=== PATIENT | female | born 1980 | race African-American/Black ===

== ENCOUNTER 2023-05-04 12:09 | Inpatient (IN) | payer OTHER ==
[~2023-05-04] VITALS: Ht 175.3 cm; Wt 87.6 kg
[2023-05-04] MEDS ORDERED: ASPirin 325 MG TAB PO ONE (12:15)
[2023-05-04] MEDS ORDERED: IBU600T PO (12:47)
[2023-05-04 12:53] LABS: Basophils # (auto) 0.1 10 ^3/uL (0-0.2); Eosinophils # (auto) 0.1 10 ^3/uL (0-0.8); Eosinophils % (auto) 0.9 % (0.0-7.0); Nucleated Red Blood Cells % 0.1 %
[2023-05-04 12:54] LABS: Hematocrit 24.9 % (36.0-46.0); Lymphocytes # (auto) 2.7 10 ^3/uL (0.4-5.4); Lymphocytes % (auto) 39.6 % (10.0-50.0); Mean Corpuscular Hemoglobin 18.3 pg (28.0-32.0); Mean Corpuscular Hgb Conc. 27.7 g/dL (32.0-36.0); Mean Corpuscular Volume 66.1 fL (80.0-100.0); Monocytes # (auto) 0.6 10 ^3/uL (0-1.3); Neutrophils # (auto) 3.3 10 ^3/uL (1.6-8.6); Neutrophils % (auto) 49.5 % (37.0-80.0); Red Blood Cells 3.77 10^6/uL (4.0-5.20); White Blood Cell 6.7 10^3/uL (4.4-10.8)
[2023-05-04 12:57] LABS: Red Cell Distribution Width 23.4 % (11.8-14.3)
[2023-05-04 13:00] LABS: Hemoglobin 6.9 g/dL (12.2-16.2)
[2023-05-04 13:10] LABS: INR 0.97 (0.9-1.15); Partial Thromboplastin Time 24.8 SEC (24.5-34.5)
[2023-05-04 13:59] LABS: Albumin 3.9 g/dL (3.4-5.0); Potassium 4.2 mmol/L (3.5-5.1)
[2023-05-04 14:05] LABS: BUN/Creatinine Ratio 15.2 (10.0-20.0); Bilirubin, Total 0.4 mg/dL (0.2-1.0); Total Protein 8.2 g/dL (6.4-8.2)
[2023-05-04] MEDS ORDERED: ONDANSETRON HCL 4 MG/2 ML VIAL IV PRN (14:30)
[2023-05-04] MEDS ORDERED: DOCUSATE SOD 100 MG CAP PO PRN (14:30)
[2023-05-04] MEDS ORDERED: MORPHINE SULFATE INJ 2 MG/ml SYRG IV PRN (14:30)
[2023-05-04] MEDS ORDERED: ACETAMINOPHEN 325 MG TAB PO PRN (14:30)
[2023-05-04] MEDS ORDERED: HYDROcodone-ACET 5/325MG TAB PO PRN (14:30)
[2023-05-04] MEDS ORDERED: IOHEXOL 350 MG/ML 100ML IJ ONE (14:35)
[2023-05-04 14:39] LABS: % Iron Saturation 2.2 % (15-50)
[2023-05-04] MEDS: FERROUS SULFATE 325mg EC TAB PO SCH (14:45)
[2023-05-04] MEDS: NITROGLYCERIN 0.4 MG SL TAB SL PRN ×2 (20:54→21:03)
[2023-05-04] MEDS: SODIUM CHLOR 0.9% PF (SALINE LOCK) 10ML VIAL/SYR IV SCH (22:36)
[2023-05-05 00:45] LABS: Urine Bacteria NONE SEEN /hpf (None Seen); Urine Blood 3+ /uL (Negative); Urine Mucus FEW (None Seen); Urine WBC 1 /hpf (0 - 5)
[2023-05-05 00:46] LABS: Urine Specific Gravity > 1.050 (1.001-1.035)
[2023-05-05] MEDS: SODIUM CHLOR 0.9% PF (SALINE LOCK) 10ML VIAL/SYR IV SCH ×3 (05:10→22:05)
[2023-05-05 05:22] VITALS: BP 119/69
[2023-05-05 05:45] VITALS: BP 104/65
[2023-05-05 07:40] VITALS: BP 112/71
[2023-05-05 07:55] VITALS: BP 115/75
[2023-05-05] MEDS: FERROUS SULFATE 325mg EC TAB PO SCH (10:17)
[2023-05-05 11:29] LABS: Basophils # (auto) 0.1 10 ^3/uL (0-0.2); Eosinophils # (auto) 0.1 10 ^3/uL (0-0.8); Hematocrit 24.4 % (36.0-46.0); Lymphocytes # (auto) 2.6 10 ^3/uL (0.4-5.4); Nucleated Red Blood Cells % 0.4 %; White Blood Cell 6.6 10^3/uL (4.4-10.8)
[2023-05-05 11:31] LABS: Basophils % (auto) 1.2 % (0.0-2.0); Eosinophils % (auto) 1.7 % (0.0-7.0); Lymphocytes % (auto) 39.5 % (10.0-50.0); Mean Corpuscular Hemoglobin 19.9 pg (28.0-32.0); Mean Corpuscular Hgb Conc. 28.9 g/dL (32.0-36.0); Mean Corpuscular Volume 69.1 fL (80.0-100.0); Monocytes # (auto) 0.7 10 ^3/uL (0-1.3); Monocytes % (auto) 10.2 % (0.0-12.0); Neutrophils # (auto) 3.1 10 ^3/uL (1.6-8.6); Neutrophils % (auto) 47.4 % (37.0-80.0); Red Blood Cells 3.53 10^6/uL (4.0-5.20)
[2023-05-05 11:34] LABS: Albumin 3.2 g/dL (3.4-5.0); Potassium 3.9 mmol/L (3.5-5.1)
[2023-05-05 11:35] LABS: Red Cell Distribution Width 25.6 % (11.8-14.3)
[2023-05-05 11:40] LABS: BUN/Creatinine Ratio 15.5 (10.0-20.0); Bilirubin, Total 0.2 mg/dL (0.2-1.0); Calcium 8.3 mg/dL (8.5-10.1); Magnesium 2.4 mg/dL (1.6-2.6); Total Protein 7.1 g/dL (6.4-8.2)
[2023-05-06] VITALS (9 sets, daily range): BP systolic 105–141; BP diastolic 60–82
[2023-05-06] MEDS ORDERED: HYDR25TA4 PO (04:39)
[2023-05-06] MEDS: SODIUM CHLOR 0.9% PF (SALINE LOCK) 10ML VIAL/SYR IV SCH ×3 (05:41→22:36)
[2023-05-06 06:39] LABS: Albumin 3.1 g/dL (3.4-5.0); Calcium 8.4 mg/dL (8.5-10.1); Magnesium 2.2 mg/dL (1.6-2.6); Potassium 3.8 mmol/L (3.5-5.1)
[2023-05-06 06:42] LABS: BUN/Creatinine Ratio 15.5 (10.0-20.0); Bilirubin, Total 0.2 mg/dL (0.2-1.0); Total Protein 7.1 g/dL (6.4-8.2)
[2023-05-06 08:14] LABS: Hematocrit 25.5 % (36.0-46.0); Hemoglobin 7.1 g/dL (12.2-16.2); Mean Corpuscular Hemoglobin 19.5 pg (28.0-32.0); Mean Corpuscular Hgb Conc. 27.9 g/dL (32.0-36.0); Mean Corpuscular Volume 69.8 fL (80.0-100.0); Red Blood Cells 3.66 10^6/uL (4.0-5.20); White Blood Cell 7.6 10^3/uL (4.4-10.8)
[2023-05-06 08:19] LABS: Basophils % (manual) 0 (0.0-2.0); Blast Cells 0; Promyelocytes % 0; Reactive Lymphocytes 0
[2023-05-06] MEDS: PANTOPRAZOLE 40 MG/10 ML VIAL INJ IV SCH (08:26)
[2023-05-06] MEDS: FERROUS SULFATE 325mg EC TAB PO SCH (08:26)
[2023-05-06 09:30] LABS: Band Neutrophils % (manual) 4; Eosinophils % (manual) 1 (0-7); Lymphocytes % (manual) 31 (10.0-50.0); Metamyelocytes % 4; Monocytes % (manual) 4 (0-12); Myelocytes % 4
[2023-05-07 00:10] VITALS: BP 105/60
[2023-05-07] MEDS: SODIUM CHLOR 0.9% PF (SALINE LOCK) 10ML VIAL/SYR IV SCH ×2 (06:22→14:00)
[2023-05-07] MEDS: PANTOPRAZOLE 40 MG/10 ML VIAL INJ IV SCH (08:33)
[2023-05-07] MEDS: FERROUS SULFATE 325mg EC TAB PO SCH (08:33)
[2023-05-07 08:46] LABS: Albumin 3.3 g/dL (3.4-5.0); Calcium 8.6 mg/dL (8.5-10.1); Potassium 3.8 mmol/L (3.5-5.1)
[2023-05-07 08:49] LABS: BUN/Creatinine Ratio 6.9 (10.0-20.0); Bilirubin, Total 0.3 mg/dL (0.2-1.0); Total Protein 7.4 g/dL (6.4-8.2)
[2023-05-07 09:00] VITALS: BP 113/77
[2023-05-07 09:05] LABS: Basophils # (auto) 0 10 ^3/uL (0-0.2); Eosinophils # (auto) 0.2 10 ^3/uL (0-0.8); Hemoglobin 8.5 g/dL (12.2-16.2)
[2023-05-07 09:07] LABS: Basophils % (auto) 0.4 % (0.0-2.0); Eosinophils % (auto) 2.3 % (0.0-7.0); Hematocrit 28.6 % (36.0-46.0); Lymphocytes # (auto) 3.1 10 ^3/uL (0.4-5.4); Lymphocytes % (auto) 42.5 % (10.0-50.0); Mean Corpuscular Hemoglobin 20.9 pg (28.0-32.0); Mean Corpuscular Hgb Conc. 29.6 g/dL (32.0-36.0); Mean Corpuscular Volume 70.6 fL (80.0-100.0); Monocytes # (auto) 0.8 10 ^3/uL (0-1.3); Monocytes % (auto) 10.9 % (0.0-12.0); Neutrophils # (auto) 3.2 10 ^3/uL (1.6-8.6); Neutrophils % (auto) 43.9 % (37.0-80.0); Nucleated Red Blood Cells % 0.3 %; Red Blood Cells 4.05 10^6/uL (4.0-5.20); White Blood Cell 7.3 10^3/uL (4.4-10.8)
[2023-05-07 09:08] LABS: Red Cell Distribution Width 26.4 % (11.8-14.3)
[2023-05-07] MEDS ORDERED: B-COMPLEX W/ C & FOLIC ACID(NEPHROVITE TAB) PO SCH (10:00)
[2023-05-07] MEDS ORDERED: DOCU-94 PO (11:47)
[2023-05-07] MEDS ORDERED: FER325T PO (11:47)
[2023-05-07 12:50] VITALS: BP 113/77
[2023-05-07 13:00] VITALS: BP 116/64
== END 2023-05-07 14:57 | disposition home or self-care (01) | DRG 532 ==
LOC: ER 12:09 → TELE 14:22 → TELE-WESTW 05-06 04:14
PROVIDERS: ATTEND Internal Medicine
PROC: 30233N1 Transfusion of Nonautologous Red Blood Cells into Peripheral Vein, Percutaneous Approach (ICD-10-PCS; principal; 2023-05-05)
DX: N92.0 Excessive and frequent menstruation with regular cycle (principal); D25.9 Leiomyoma of uterus, unspecified; D50.0 Iron deficiency anemia secondary to blood loss (chronic); F17.210 Nicotine dependence, cigarettes, uncomplicated; I10 Essential (primary) hypertension; K21.9 Gastro-esophageal reflux disease without esophagitis; R07.89 Other chest pain; R79.89 Other specified abnormal findings of blood chemistry; M93.90 Osteochondropathy, unspecified of unspecified site; Z82.49 Family history of ischemic heart disease and other diseases of the circulatory system
CPT/HCPCS: 36415; 71045; 71275; 76856; 80053; 81001; 82270; 82728; 83540; 83550; 83605; 83615; 83735; 84484; 85007; 85025; 85027; 85379; 85610; 85730; 86850; 86900; 86901; 86920; 93005; 93306; 99291; C9113; G0378